=== PATIENT | female | born 1940 | race Caucasian/White ===

== ENCOUNTER → 2021-02-24 | Outpatient (CLI) | payer MEDICARE, SELFPAY ==
[~2021-02-24] MED LIST: ARTHRITIS PAIN650 M1 PO; BUSPIRONE HCL15 MG PO; CLARITIN10 MG PO; ELIQUIS5 MG PO; GABAPENTIN300 MG PO; HYDROCODON-ACE1 EAC2 PO; LEVOTHYROXINE50 MC1 PO; LEVOTHYROXINE50 MCG PO; LISINOPRIL20 MG PO; MIRALAX17 GM PO; PROTONIX 40 MG40 M1 PO; SORINE80 MG PO; SOTALOL80 MG PO; STOOL SOFTENER100 MG PO; TRAMADOL HCL50 MG PO; TYLENOL325 MG PO; ULTRAM50 MG PO; VITAMIN D21250 MCG PO
[2021-02-24 12:27] LABS: HEMOGLOBIN 12.4 gm/dl (12.3-15.3); RED BLOOD COUNT 4.33 M/UL (4.00-5.10); WHITE BLOOD COUNT 7.2 K/UL (4.5-11.0)
[2021-02-24 13:19] LABS: BUN/CREATININE RATIO 20 (0-10)
== END ==
LOC: OPSV2 11:00
PROVIDERS: Orthopaedic Surgery
DX: Z01.818 Encounter for other preprocedural examination (principal); S82.851A Displaced trimalleolar fracture of right lower leg, initial encounter for closed fracture; I48.91 Unspecified atrial fibrillation
CPT/HCPCS: 36415; 80048; 85025; 93005

== ENCOUNTER 2021-02-28 06:05 | Observation (INO) | payer MEDICARE, SELFPAY ==
[~2021-02-28] VITALS: Ht 154.9 cm; Wt 71.7 kg
[~2021-02-28 06:05] MED LIST changes: -ARTHRITIS PAIN650 M1 PO; -HYDROCODON-ACE1 EAC2 PO; -LEVOTHYROXINE50 MC1 PO; -SORINE80 MG PO; -ULTRAM50 MG PO
[2021-02-28] MEDS ORDERED: ULTRAM50 MG PO (06:33)
[2021-02-28] MEDS ORDERED: ELIQUIS5 MG PO (06:33)
[2021-02-28] MEDS ORDERED: SORINE80 MG PO (06:34)
[2021-02-28] MEDS ORDERED: VITAMIN D21250 MCG PO (06:34)
[2021-02-28] MEDS ORDERED: LEVOTHYROXINE50 MC1 PO (06:35)
[2021-02-28] MEDS ORDERED: GABAPENTIN300 MG PO (06:35)
[2021-02-28] MEDS ORDERED: PROTONIX 40 MG40 M1 PO (06:35)
[2021-02-28] MEDS ORDERED: LISINOPRIL20 MG PO (06:35)
[2021-02-28] MEDS ORDERED: BUSPIRONE HCL15 MG PO (06:39)
[2021-02-28] MEDS ORDERED: STOOL SOFTENER100 MG PO (06:40)
[2021-02-28] MEDS ORDERED: CLARITIN10 MG PO (06:41)
[2021-02-28] MEDS ORDERED: ARTHRITIS PAIN650 M1 PO (06:41)
[2021-02-28] MEDS ORDERED: MIRALAX17 GM PO (06:44)
[2021-02-28 12:59] LABS: HEMOGLOBIN 12.5 gm/dl (12.3-15.3); RED BLOOD COUNT 4.44 M/UL (4.00-5.10)
[2021-03-01 04:17] LABS: HEMOGLOBIN 12.3 gm/dl (12.3-15.3); RED BLOOD COUNT 4.28 M/UL (4.00-5.10)
[2021-03-01 04:45] LABS: BUN/CREATININE RATIO 20 (0-10)
[2021-03-01] MEDS ORDERED: HYDROCODON-ACE1 EAC2 PO (12:49)
== END 2021-03-01 13:50 | disposition home or self-care (01) ==
LOC: OR 06:05 → MED SURG 4 11:10 → OR 15:00 → MED SURG 4 03-01 07:44 → OR 03-01 13:50 → MED SURG 4 03-01 13:50
PROVIDERS: Physician Assistant; ADMIT Orthopaedic Surgery
DX: S82.851A Displaced trimalleolar fracture of right lower leg, initial encounter for closed fracture (principal); R00.1 Bradycardia, unspecified; G89.18 Other acute postprocedural pain; I10 Essential (primary) hypertension; E78.5 Hyperlipidemia, unspecified; I25.10 Atherosclerotic heart disease of native coronary artery without angina pectoris; I48.91 Unspecified atrial fibrillation; K21.9 Gastro-esophageal reflux disease without esophagitis; M19.90 Unspecified osteoarthritis, unspecified site; E03.9 Hypothyroidism, unspecified; Z88.1 Allergy status to other antibiotic agents; Z88.6 Allergy status to analgesic agent; Z79.01 Long term (current) use of anticoagulants; Z79.891 Long term (current) use of opiate analgesic; Z79.899 Other long term (current) drug therapy; W01.0XXA Fall on same level from slipping, tripping and stumbling without subsequent striking against object, initial encounter
CPT/HCPCS: 36415; 73610; 76000; 80048; 84439; 84443; 85025; 93005; 97162; 97166; 97535; C1713; G0378 ×2; J0171; J0690; J1100; J2001; J2405; J2704; J2795; J7120